=== PATIENT | male | born 1980 | race Caucasian/White ===

== ENCOUNTER → 2017-05-02 | Day surgery (SDC) | payer MEDICAID ==
[~2017-05-02] VITALS: Ht 170.2 cm; Wt 89.0 kg
[~2017-05-02] MED LIST: ACETAMINOPHEN 1000 MG/100 ML 100 ML IV ONE; BUPIVACAINE HCL PF 0.5% 30 ML VIAL ONE; CEPH-460 PO; CHLORHEXIDINE GLUCONATE 2 % 1 PACK (2 CLOTHS) TOPICAL PRN; FAMOTIDINE 20 MG/2 ML VIAL ONE; HYDR-3288 PO; HYDR-3516 PO; IBUP800T23 PO; INSULIN HUMAN REGULAR 1,000 UNITS/10 ML VIAL SQ PRN; KETOROLAC TROMETHAMINE 60 MG/2 ML (IM) VIAL IM ONE; LACTATED RINGER'S 1000 ML IV PRN; LIDOCAINE HCL 2% 50 ML VIAL ONE; METOPROLOL TARTRATE 25 MG TAB PO PRN; MIDAZOLAM HCL 2 MG/2 ML VIAL ONE; NEOMYCIN/POLYMYXIN 1 ML G.U. IRRIGANT ONE; ONDANSETRON HCL 4 MG/2 ML VIAL IV PUSH ONE; ONDANSETRON HCL 4 MG/2 ML VIAL ONE; POVIDONE IODINE 5% (ANTISEPSIS KIT) 4 APPLICATIONS EACH NARE PRN; PROPOFOL 200 MG/20 ML AMP IV ONE; SODIUM CHLORID 0.9% 500 ML IV PRN; ceFAZolin 2 GM PREMIX 50 ML IV SCH
[2017-05-02 13:25] VITALS: PULSE 85; TEMP 98.2
[2017-05-02 13:45] VITALS: PULSE 76
[2017-05-02 14:30] VITALS: BP 132/90; PULSE 65; RESP 16; O2SAT 96
--- NOTE | 2017-05-09 13:06 | MP ---
cc: REGINALDO ZHANG III, M.D. DATE OF SURGERY 05/02/2017 REDICTATION - 05/09/2017 PLEASE NOTE: Dictation done from memory alone without notes in front of me. PREOPERATIVE DIAGNOSIS Left hand laceration with extensor tendon injury. PROCEDURE Left hand exploration and repair of extensor tendons x3, EIP, EDC2 and EDC3. SURGEON Reginaldo Zhang III, MD PROCEDURE The patient was brought to the operating room and placed supine on the operating room table. After preoperative markings and preoperative written consent were verified by everyone and, adequate general anesthesia was achieved, the left upper extremity was prepped and draped in the traditional sterile surgical fashion. Existing sutures were removed. The wound was extended 1 cm in each direction to enhance exposure. Cultures were obtained. Thorough irrigation was performed. Exploration revealed transected EIP and EDC2 tendons as well as 90% transection of the EDC3 tendon. These were retracted back in the wound and repaired. The EDC3 tendon was repaired using a sturdy 3-0 Prolene suture and then reinforced with 4-0 Mersilene. The EIP and the EDC2 tendons were reapproximated end-to-end using 4-0 Prolene suture, reinforced with 4-0 Mersilene. Passive range of motion examination was performed and was full and unrestricted. There was no bunching up of the tendon. There was no gapping present. Thorough irrigation was performed. The skin edges were reapproximated using interrupted 4-0 nylon sutures. The hand and arm were thoroughly cleansed and dried. Betadine and Adaptic dressings were applied on top of the wound, followed by a bulky immobilizing volar extension splint. Capillary refill was less than 2 seconds in all fingertips. The patient was awakened from anesthesia and transported to the Post-Anesthesia Care Unit awake and in stable condition at the end of the case. Sponge, needle and instrument counts were correct at the end of case as reported by the nurses in the room. MD MUMTAZ Dickens III/GINNY /10:40 AM /12:51 PM
== END | disposition home or self-care (01) ==
LOC: PHSDC 10:47
PROVIDERS: ATTEND Orthopaedic Surgery Hand Surgery
DX: S66.822A Laceration of other specified muscles, fascia and tendons at wrist and hand level, left hand, initial encounter (principal); S61.412A Laceration without foreign body of left hand, initial encounter; B37.89 Other sites of candidiasis; M79.642 Pain in left hand
CPT/HCPCS: 01810; 26410; 87015; 87070; 87102; 87106; 87116; 87205; 87206; J0131; J0690; J1885; J2250; J2405; J3010; J7120